=== PATIENT | female | born 1935 | race African-American/Black ===

== ENCOUNTER 2017-03-03 09:30 | Inpatient (IN) | payer MEDICARE, BC ==
[~2017-03-03] VITALS: Ht 167.6 cm; Wt 93.0 kg
[~2017-03-03 09:30] MED LIST: ACUL5 RIGHTEYE; ALLO100T PO; CARV6.2548 PO; CLONIDINE TD; CLOP75TA33 PO; DILT360T11 PO; FAMO20TA8 PO; FERR-63 PO; FLOV44 IH; FOLI-43 PO; FURO20TA4 PO; GABA-529 PO; GLIM4TAB2 PO; HYDR100T26 PO; LEVO100T9 PO; METO2.5T14 PO; PANT40TA4 PO; PRO AIR INH; THIA100T8 PO; VITAMIN C PO
[2017-03-03] MEDS ORDERED: SODIUM CHLORIDE 0.9% 250 ML IV ONE (09:46)
[2017-03-03] MEDS ORDERED: ACETAMINOPHEN 325MG TABLET PO STA (10:17)
[2017-03-03 10:23] LABS: HEMATOCRIT. 35.9 % (36.0-48.0); HEMOGLOBIN. 11.8 g/dL (12.0-16.0); MEAN CORPUSCULAR HEMOGLOBIN 28.8 pg (28.0-32.0); MEAN CORPUSCULAR VOLUME 87.7 fL (81.0-99.0); MEAN PLATELET VOLUME 9.5 fl (7.4-10.4); PLATELET 250 x1000/uL (130-400); RED BLOOD CELL COUNT 4.09 mill/uL (4.2-5.4); RED CELL DISTRIBUTION WIDTH 16.5 % (11.6-14.6)
[2017-03-03 10:28] LABS: PROTHROMBIN TIME 10.7 sec
[2017-03-03] MEDS ORDERED: VANCOMYCIN 1 G PREMIX 200 ML IV ONE (10:30)
[2017-03-03] MEDS ORDERED: PIPERACILLIN/TAZ 3.375G PREMIX 50 ML IV ONE (10:30)
[2017-03-03 10:36] LABS: CARBON DIOXIDE 32 mEq/L (21-32); CHLORIDE 96 mEq/L (98-107); TROPONIN I < 0.02 ng/mL (0.00-0.04)
[2017-03-03 11:32] LABS: CLARITY URINE CLEAR (CLEAR); COLOR URINE YELLOW (YELLOW); GLUCOSE URINE TRACE (NEGATIVE); KETONES URINE NEGATIVE (NEGATIVE); LEUKOCYTE ESTERASE URINE NEGATIVE (NEGATIVE); NITRITE URINE NEGATIVE (NEGATIVE); OCCULT BLOOD URINE NEGATIVE (NEGATIVE); PROTEIN URINE 3+ (NEGATIVE); SPECIFIC GRAVITY URINE 1.015 (1.005-1.030)
[2017-03-03 13:23] LABS: PLATELET ESTIMATE NORMAL
[2017-03-03] MEDS ORDERED: GUAIFENESIN 200MG/10ML SUGAR FREE UDC PO PRN (17:15)
[2017-03-03] MEDS ORDERED: MAGNESIUM/ALUMINUM HYDROXIDE/SIMETHICONE 30ML UDC PO PRN (17:15)
[2017-03-03] MEDS ORDERED: ACETAMINOPHEN 650MG/20.3ML UDC GT PRN (17:15)
[2017-03-03] MEDS ORDERED: ACETAMINOPHEN 325MG TABLET PO PRN (17:15)
[2017-03-03] MEDS ORDERED: DIPHENHYDRAMINE 50MG/ML VIAL IV PRN (17:15)
[2017-03-03] MEDS ORDERED: IPRATROPIUM/ALBUTEROL 0.5-3(2.5)MG/3ML NEB INH PRN (17:15)
[2017-03-03] MEDS ORDERED: ONDANSETRON HCL 4MG/2ML VIAL IV PRN (17:15)
[2017-03-03] MEDS ORDERED: CLONIDINE 0.1MG TABLET PO PRN (17:15)
[2017-03-03] MEDS ORDERED: DOCUSATE SODIUM 100MG CAPSULE PO PRN (17:15)
[2017-03-03] MEDS ORDERED: ACETAMINOPHEN 650MG SUPP PR PRN (17:15)
[2017-03-03] MEDS ORDERED: HYDROCODONE/ACETAMINOPHEN 5/325MG TABLET PO PRN (17:15)
[2017-03-03] MEDS ORDERED: NA PHOS,M-B/NA PHOS,DI-BA ENEMA 118ML PR PRN (17:15)
[2017-03-03] MEDS ORDERED: DEXTROSE 50% WATER 50ML SYRINGE IV PRN (17:30)
[2017-03-03 17:47] VITALS: BP 136/60
[2017-03-03] MEDS ORDERED: ROSU5TAB PO (17:54)
[2017-03-03] MEDS ORDERED: AMLO2.5T45 PO (17:54)
[2017-03-03 18:11] VITALS: BP 136/60
[2017-03-03 18:59] LABS: *AMPHETAMINES SCREEN URINE NEGATIVE (NEGATIVE); *BARBITURATES SCREEN URINE NEGATIVE (NEGATIVE); *BENZODIAZEPINES SCREEN URINE NEGATIVE (NEGATIVE); *COCAINE SCREEN URINE NEGATIVE (NEGATIVE); CANNABINOID URINE SCREEN NEGATIVE (NEGATIVE); METHADONE URINE SCREEN NEGATIVE (NEGATIVE); OPIATES URINE SCREEN NEGATIVE (NEGATIVE); PHENCYCLIDINE URINE SCREEN NEGATIVE (NEGATIVE)
[2017-03-03 20:00] VITALS: BP 167/94
[2017-03-03] MEDS ORDERED: ENOXAPARIN 40MG/0.4ML SYR SUBCUT SCH (20:00)
[2017-03-03] MEDS ORDERED: LEVOFLOXACIN 500MG PREMIX 100 ML IV NR (21:00)
[2017-03-03] MEDS: ENOXAPARIN 40MG/0.4ML SYR SUBCUT SCH (21:45)
[2017-03-03] MEDS: BLOOD SUGAR DIAGNOSTIC STRIP TEST SCH (21:45)
[2017-03-03] MEDS: INSULIN LISPRO 100 UNITS/ML SUBCUT SCH (22:07)
[2017-03-03] MEDS: SODIUM CHLORIDE 0.9% INJ 3ML FLUSH IVF SCH (22:07)
[2017-03-04] VITALS: BP 160/72
[2017-03-04 04:00] VITALS: BP 132/65
[2017-03-04] MEDS: BLOOD SUGAR DIAGNOSTIC STRIP TEST SCH ×4 (05:39→21:00)
[2017-03-04] MEDS: SODIUM CHLORIDE 0.9% INJ 3ML FLUSH IVF SCH ×3 (05:40→22:05)
[2017-03-04] MEDS: INSULIN LISPRO 100 UNITS/ML SUBCUT SCH ×4 (07:18→22:11)
[2017-03-04 07:22] LABS: BASOPHILS % 0.4 % (0.0-2.0); EOSINOPHILS % 0.9 % (0.0-5.0); HEMATOCRIT. 33.2 % (36.0-48.0); HEMOGLOBIN. 10.8 g/dL (12.0-16.0); LYMPHOCYTES % 18.4 % (20.0-50.0); MEAN CORPUSCULAR HEMOGLOBIN 28.7 pg (28.0-32.0); MEAN CORPUSCULAR VOLUME 88.6 fL (81.0-99.0); MONOCYTES % 12.1 % (2.0-8.0); NEUTROPHILS % 68.2 % (40.0-76.0); PLATELET 232 x1000/uL (130-400); RED BLOOD CELL COUNT 3.75 mill/uL (4.2-5.4); RED CELL DISTRIBUTION WIDTH 16.3 % (11.6-14.6)
[2017-03-04 08:00] VITALS: BP 144/77
[2017-03-04 08:23] LABS: CHLORIDE 99 mEq/L (98-107)
[2017-03-04 08:47] LABS: CARBON DIOXIDE 27 mEq/L (21-32); HDL CHOLESTEROL 43 mg/dL (40-59); LDL CHOLESTEROL 30 mg/dL (5-100)
[2017-03-04] MEDS ORDERED: POTASSIUM CHLORIDE 20MEQ TABLET SR PO NR (09:30)
[2017-03-04 12:00] VITALS: BP 106/56
[2017-03-04] MEDS ORDERED: HEPARIN SODIUM 1,000 UNIT/1ML VIAL IV NR (12:30)
[2017-03-04] MEDS: CARVEDILOL 6.25 MG TABLET PO SCH ×2 (13:00→22:04)
[2017-03-04] MEDS: AMLODIPINE 5MG TABLET PO SCH (13:00)
[2017-03-04] MEDS: FOLIC ACID 1MG TABLET PO SCH (13:51)
[2017-03-04] MEDS: CLOPIDOGREL 75MG TABLET PO SCH (13:51)
[2017-03-04] MEDS: FAMOTIDINE 20MG TABLET PO SCH (13:52)
[2017-03-04] MEDS: ALLOPURINOL 100 MG TABLET PO SCH (13:52)
[2017-03-04] MEDS: PANTOPRAZOLE 40MG DR TABLET PO SCH (13:52)
[2017-03-04] MEDS: HYDRALAZINE HCL 100MG TABLET PO SCH ×2 (15:02→22:04)
[2017-03-04] MEDS: FUROSEMIDE 20MG TABLET PO SCH (15:03)
[2017-03-04] MEDS: METOLAZONE 2.5MG TABLET PO SCH (15:03)
[2017-03-04 16:00] VITALS: BP 117/71
[2017-03-04 20:00] VITALS: BP 126/67
[2017-03-04] MEDS ORDERED: GABAPENTIN 100MG CAPSULE PO SCH (21:00)
[2017-03-04] MEDS: METRONIDAZOLE 500MG TABLET PO SCH (22:04)
[2017-03-04] MEDS: ENOXAPARIN 40MG/0.4ML SYR SUBCUT SCH (22:05)
[2017-03-05] VITALS: BP 144/75
[2017-03-05 04:00] VITALS: BP 152/80
[2017-03-05] MEDS: BLOOD SUGAR DIAGNOSTIC STRIP TEST SCH (05:25)
[2017-03-05] MEDS: METRONIDAZOLE 500MG TABLET PO SCH (05:29)
[2017-03-05] MEDS: HYDRALAZINE HCL 100MG TABLET PO SCH (05:29)
[2017-03-05] MEDS: SODIUM CHLORIDE 0.9% INJ 3ML FLUSH IVF SCH ×2 (05:29→07:38)
[2017-03-05] MEDS: INSULIN LISPRO 100 UNITS/ML SUBCUT SCH (07:34)
[2017-03-05] MEDS ORDERED: LEVOTHYROXINE SODIUM 100MCG TABLET PO SCH (07:40)
[2017-03-05 08:00] VITALS: BP 155/100
[2017-03-05] MEDS: FUROSEMIDE 20MG TABLET PO SCH (08:45)
[2017-03-05] MEDS: FAMOTIDINE 20MG TABLET PO SCH (08:45)
[2017-03-05] MEDS: METOLAZONE 2.5MG TABLET PO SCH (08:47)
[2017-03-05] MEDS: PANTOPRAZOLE 40MG DR TABLET PO SCH (08:47)
[2017-03-05] MEDS: ALLOPURINOL 100 MG TABLET PO SCH (08:47)
[2017-03-05] MEDS: CLOPIDOGREL 75MG TABLET PO SCH (08:47)
[2017-03-05] MEDS: FOLIC ACID 1MG TABLET PO SCH (08:49)
[2017-03-05] MEDS: CARVEDILOL 6.25 MG TABLET PO SCH (08:52)
[2017-03-05] MEDS: AMLODIPINE 5MG TABLET PO SCH (08:53)
[2017-03-05] MEDS ORDERED: GLIMEPIRIDE 4MG TABLET PO SCH (09:00)
[2017-03-05 12:00] VITALS: BP 126/87
[2017-03-05 12:05] VITALS: BP 126/87
[2017-03-05] MEDS ORDERED: LEVOFLOXACIN 250MG PREMIX 50 ML IV SCH (18:00)
== END 2017-03-05 13:00 | disposition home or self-care (01) | DRG 70 ==
LOC: ER 09:44 → ENRESERV 15:21 → 7WST 17:30
PROVIDERS: ADMIT Family Medicine; ATTEND Family Medicine
PROC: 5A1D00Z (ICD-10-PCS; principal; 2017-03-04)
DX: G93.41 Metabolic encephalopathy (principal); N18.6 End stage renal disease; I13.2 Hypertensive heart and chronic kidney disease with heart failure and with stage 5 chronic kidney disease, or end stage renal disease; E44.1 Mild protein-calorie malnutrition; A04.7 Enterocolitis due to Clostridium difficile; I69.959 Hemiplegia and hemiparesis following unspecified cerebrovascular disease affecting unspecified side; G62.9 Polyneuropathy, unspecified; E03.9 Hypothyroidism, unspecified; E11.40 Type 2 diabetes mellitus with diabetic neuropathy, unspecified; D64.9 Anemia, unspecified; E11.22 Type 2 diabetes mellitus with diabetic chronic kidney disease; I50.9 Heart failure, unspecified; M10.9 Gout, unspecified; Z99.2 Dependence on renal dialysis; Z87.891 Personal history of nicotine dependence; Z90.49 Acquired absence of other specified parts of digestive tract; Z98.49 Cataract extraction status, unspecified eye; Z88.6 Allergy status to analgesic agent; Z88.0 Allergy status to penicillin; Z93.1 Gastrostomy status; Z68.33 Body mass index [BMI] 33.0-33.9, adult; Z86.73 Personal history of transient ischemic attack (TIA), and cerebral infarction without residual deficits; Z90.710 Acquired absence of both cervix and uterus
CPT/HCPCS: 36415; 70450; 71010; 80053; 80061; 80305; 81001; 82962; 83605; 84484; 85025; 85610; 87015; 87040; 87045; 87086; 87427; 87449; 87493; 93005; 99285; J1644; J1650; J1815; J1956; J2543; J3370; J7030; J7050

== ENCOUNTER 2017-09-29 01:27 | Inpatient (IN) | payer MEDICARE, BC ==
[~2017-09-29] VITALS: Ht 167.6 cm; Wt 91.6 kg
[~2017-09-29 01:27] MED LIST changes: -ACUL5 RIGHTEYE; +AMLO2.5T45 PO; -DILT360T11 PO; -FERR-63 PO; +ROSU5TAB PO; -THIA100T8 PO; +THIA100T88 PO
[2017-09-29] MEDS ORDERED: NEPVIT PO (01:46)
[2017-09-29] MEDS ORDERED: ASCO125T PO (01:47)
[2017-09-29] MEDS ORDERED: LEVVL SQ (01:48)
[2017-09-29] MEDS ORDERED: SODIUM CHLORIDE 0.9% 1,000 ML IV ONE (01:58)
[2017-09-29] MEDS ORDERED: ACETAMINOPHEN 325MG TABLET PO ONE (02:15)
[2017-09-29] MEDS ORDERED: VANCOMYCIN 1 G PREMIX 200 ML IV ONE (02:30)
[2017-09-29] MEDS ORDERED: LEVOFLOXACIN 750MG PREMIX 150 ML IV ONE (02:30)
[2017-09-29 03:21] LABS: CLARITY URINE CLEAR (CLEAR); COLOR URINE YELLOW (YELLOW); KETONES URINE NEGATIVE (NEGATIVE); LEUKOCYTE ESTERASE URINE NEGATIVE (NEGATIVE); NITRITE URINE NEGATIVE (NEGATIVE); OCCULT BLOOD URINE NEGATIVE (NEGATIVE); PROTEIN URINE 3+ (NEGATIVE); SPECIFIC GRAVITY URINE 1.015 (1.005-1.030); UROBILINOGEN URINE 0.2 E.U./dL (0.2-1.0)
[2017-09-29 03:24] LABS: HEMATOCRIT. 33.5 % (36.0-48.0); MEAN CORPUSCULAR HEMOGLOBIN 30.9 pg (28.0-32.0); MEAN CORPUSCULAR VOLUME 94.1 fL (81.0-99.0); MEAN PLATELET VOLUME 9.8 fl (7.4-10.4); PLATELET 206 x1000/uL (130-400); RED BLOOD CELL COUNT 3.56 mill/uL (4.2-5.4); RED CELL DISTRIBUTION WIDTH 15.3 % (11.6-14.6)
[2017-09-29 03:26] LABS: INR 1.1; PROTHROMBIN TIME 11.3 sec (9.4-11.6)
[2017-09-29] MEDS ORDERED: OSELTAMIVIR 75MG CAPSULE PO ONE (03:30)
[2017-09-29 04:01] LABS: CHLORIDE 97 mEq/L (98-107)
[2017-09-29 04:29] LABS: PLATELET ESTIMATE NORMAL
[2017-09-29] MEDS ORDERED: IPRATROPIUM/ALBUTEROL 0.5-3(2.5)MG/3ML NEB INH PRN (07:00)
[2017-09-29] MEDS ORDERED: CLONIDINE 0.1MG TABLET PO PRN (07:00)
[2017-09-29] MEDS ORDERED: DOCUSATE SODIUM 100MG CAPSULE PO PRN (07:00)
[2017-09-29] MEDS ORDERED: LORAZEPAM 2MG/ML CPJ IV PRN (07:00)
[2017-09-29] MEDS ORDERED: ONDANSETRON HCL 4MG/2ML INJ IV PRN ×2 (07:00→07:45)
[2017-09-29] MEDS ORDERED: ACETAMINOPHEN 325MG TABLET PO PRN (07:00)
[2017-09-29] MEDS ORDERED: GUAIFENESIN 200MG/10ML SUGAR FREE UDC PO PRN (07:00)
[2017-09-29] MEDS ORDERED: LEVOFLOXACIN 500MG PREMIX 100 ML IV SCH (07:00)
[2017-09-29] MEDS ORDERED: DIPHENHYDRAMINE 50MG/ML VIAL IV PRN (07:00)
[2017-09-29] MEDS ORDERED: MAGNESIUM/ALUMINUM HYDROXIDE/SIMETHICONE 30ML UDC PO PRN (07:00)
[2017-09-29] MEDS ORDERED: HYDROMORPHONE HCL/PF 2MG/ML CPJ IV PRN (07:00)
[2017-09-29] MEDS ORDERED: NA PHOS,M-B/NA PHOS,DI-BA ENEMA 118ML PR PRN (07:00)
[2017-09-29 08:55] VITALS: BP 112/44
[2017-09-29 09:00] VITALS: BP 112/44
[2017-09-29] MEDS ORDERED: CLON0.1T PO (09:23)
[2017-09-29] MEDS ORDERED: SEVE800T8 PO (09:24)
[2017-09-29] MEDS ORDERED: CLONIDINE 0.1 MG TD PRN (11:15)
[2017-09-29] MEDS ORDERED: CLONIDINE 0.1MG TABLET PO SCH (11:15)
[2017-09-29 12:00] VITALS: BP 107/52
[2017-09-29] MEDS: ENOXAPARIN 30MG/0.3ML SYR SUBCUT SCH (12:03)
[2017-09-29] MEDS: AMLODIPINE 5MG TABLET PO SCH (12:21)
[2017-09-29] MEDS: ASPIRIN 81MG EC TABLET PO SCH (12:22)
[2017-09-29] MEDS: BLOOD SUGAR DIAGNOSTIC STRIP TEST SCH ×3 (12:40→20:40)
[2017-09-29] MEDS: HYDRALAZINE HCL 100MG TABLET PO SCH ×2 (12:51→17:00)
[2017-09-29] MEDS: INSULIN LISPRO 100 UNITS/ML SUBCUT SCH ×3 (12:56→20:40)
[2017-09-29] MEDS: SEVELAMER CARBONATE 800 MG TABLET PO SCH ×3 (14:04→20:30)
[2017-09-29 16:00] VITALS: BP 113/57
[2017-09-29 16:19] LABS: CREATINE KINASE 140 IU/L (26-192); CREATINE KINASE MB FRACTION 1.5 ng/mL (0.5-3.6)
[2017-09-29] MEDS: CARVEDILOL 6.25 MG TABLET PO SCH (17:00)
[2017-09-29] MEDS ORDERED: FLUTICASONE PROPIONATE IH SCH (17:00)
[2017-09-29] MEDS ORDERED: FAMOTIDINE(NEO) 1MG/ML SUSP PO SCH (17:00)
[2017-09-29] MEDS: BUDESONIDE 0.5MG/2ML NEB HHN SCH (19:43)
[2017-09-29 20:00] VITALS: BP 118/67
[2017-09-29] MEDS: ATORVASTATIN CALCIUM 10MG TABLET PO SCH (20:30)
[2017-09-29] MEDS: GABAPENTIN 100MG CAPSULE PO SCH (20:30)
[2017-09-30] VITALS: BP 117/70
[2017-09-30 00:06] LABS: CREATINE KINASE 118 IU/L (26-192); CREATINE KINASE MB FRACTION 1.2 ng/mL (0.5-3.6)
[2017-09-30 04:00] VITALS: BP 137/57
[2017-09-30 06:28] LABS: HEMATOCRIT. 35.1 % (36.0-48.0); HEMOGLOBIN. 11.5 g/dL (12.0-16.0); MEAN CORPUSCULAR HEMOGLOBIN 30.9 pg (28.0-32.0); MEAN CORPUSCULAR VOLUME 94.3 fL (81.0-99.0); MEAN PLATELET VOLUME 10.1 fl (7.4-10.4); PLATELET 193 x1000/uL (130-400); RED BLOOD CELL COUNT 3.72 mill/uL (4.2-5.4); RED CELL DISTRIBUTION WIDTH 15.4 % (11.6-14.6)
[2017-09-30] MEDS: BLOOD SUGAR DIAGNOSTIC STRIP TEST SCH ×4 (07:40→20:40)
[2017-09-30] MEDS: INSULIN LISPRO 100 UNITS/ML SUBCUT SCH ×4 (07:55→20:41)
[2017-09-30 08:00] VITALS: BP 123/60
[2017-09-30] MEDS: BUDESONIDE 0.5MG/2ML NEB HHN SCH ×2 (08:13→21:57)
[2017-09-30 08:19] LABS: CHLORIDE 98 mEq/L (98-107); CREATINE KINASE 106 IU/L (26-192); HDL CHOLESTEROL 44 mg/dL (40-59); LDL CHOLESTEROL 36 mg/dL (5-100)
[2017-09-30] MEDS: LEVOTHYROXINE SODIUM 100MCG TABLET PO SCH (08:35)
[2017-09-30] MEDS: SEVELAMER CARBONATE 800 MG TABLET PO SCH ×4 (08:35→20:31)
[2017-09-30] MEDS ORDERED: MEDICATION NOT ON FORMULARY EA (Rosuvastatin Calcium (Crestor) 5 MG) PO SCH (09:00)
[2017-09-30] MEDS ORDERED: METOLAZONE 2.5MG TABLET PO SCH (09:00)
[2017-09-30] MEDS ORDERED: THIAMINE HCL 100 MG PO SCH (09:00)
[2017-09-30] MEDS ORDERED: VITAMIN C 250 MG PO SCH (09:00)
[2017-09-30] MEDS ORDERED: FUROSEMIDE 20MG TABLET PO SCH (09:00)
[2017-09-30] MEDS: ASCORBIC ACID 250 MG TABLET PO SCH (09:06)
[2017-09-30] MEDS: GLIMEPIRIDE 4MG TABLET PO SCH (09:06)
[2017-09-30] MEDS: HYDRALAZINE HCL 100MG TABLET PO SCH ×3 (09:06→17:00)
[2017-09-30] MEDS: CLOPIDOGREL 75MG TABLET PO SCH (09:06)
[2017-09-30] MEDS: THIAMINE HCL 100MG TABLET PO SCH (09:06)
[2017-09-30] MEDS: ASPIRIN 81MG EC TABLET PO SCH (09:07)
[2017-09-30] MEDS: FOLIC ACID 1MG TABLET PO SCH (09:07)
[2017-09-30] MEDS: PANTOPRAZOLE 40MG DR TABLET PO SCH (09:07)
[2017-09-30] MEDS: CARVEDILOL 6.25 MG TABLET PO SCH ×2 (09:07→17:00)
[2017-09-30] MEDS: AMLODIPINE 5MG TABLET PO SCH (09:07)
[2017-09-30] MEDS: FAMOTIDINE 20MG TABLET PO SCH (09:07)
[2017-09-30] MEDS: ENOXAPARIN 30MG/0.3ML SYR SUBCUT SCH (09:08)
[2017-09-30] MEDS: ALLOPURINOL 100 MG TABLET PO SCH (09:09)
[2017-09-30 12:00] VITALS: BP 115/49
[2017-09-30] MEDS: IPRATROPIUM/ALBUTEROL 0.5-3(2.5)MG/3ML NEB HHN SCH ×3 (12:28→21:57)
[2017-09-30 13:04] LABS: PLATELET ESTIMATE NORMAL
[2017-09-30 16:00] VITALS: BP 105/50
[2017-09-30 19:58] VITALS: BP 102/50
[2017-09-30] MEDS: GABAPENTIN 100MG CAPSULE PO SCH (20:31)
[2017-09-30] MEDS: ATORVASTATIN CALCIUM 10MG TABLET PO SCH (20:32)
[2017-09-30] MEDS ORDERED: IPRATROPIUM/ALBUTEROL 0.5-3(2.5)MG/3ML NEB HHN PRN (21:00)
[2017-10-01] VITALS: BP 120/55
[2017-10-01] MEDS ORDERED: LEVOFLOXACIN 250MG PREMIX 50 ML IV SCH (03:00)
[2017-10-01 04:00] VITALS: BP 132/63
[2017-10-01] MEDS: DEXTROSE 50% WATER 50ML SYRINGE IV PRN (06:01)
[2017-10-01] MEDS: BLOOD SUGAR DIAGNOSTIC STRIP TEST SCH ×4 (06:34→21:07)
[2017-10-01] MEDS: IPRATROPIUM/ALBUTEROL 0.5-3(2.5)MG/3ML NEB HHN SCH ×4 (07:59→20:32)
[2017-10-01] MEDS: BUDESONIDE 0.5MG/2ML NEB HHN SCH ×2 (07:59→20:30)
[2017-10-01 08:00] VITALS: BP 135/62
[2017-10-01] MEDS: HYDRALAZINE HCL 100MG TABLET PO SCH ×3 (09:00→17:00)
[2017-10-01] MEDS: AMLODIPINE 5MG TABLET PO SCH (09:00)
[2017-10-01] MEDS: CLOPIDOGREL 75MG TABLET PO SCH (09:00)
[2017-10-01] MEDS: CARVEDILOL 6.25 MG TABLET PO SCH ×2 (09:00→17:00)
[2017-10-01] MEDS: PANTOPRAZOLE 40MG DR TABLET PO SCH (09:09)
[2017-10-01] MEDS: ASPIRIN 81MG EC TABLET PO SCH (09:09)
[2017-10-01] MEDS: SEVELAMER CARBONATE 800 MG TABLET PO SCH ×4 (09:09→21:00)
[2017-10-01] MEDS: LEVOTHYROXINE SODIUM 100MCG TABLET PO SCH (09:09)
[2017-10-01] MEDS: THIAMINE HCL 100MG TABLET PO SCH (09:09)
[2017-10-01] MEDS: FOLIC ACID 1MG TABLET PO SCH (09:09)
[2017-10-01] MEDS: ALLOPURINOL 100 MG TABLET PO SCH (09:09)
[2017-10-01] MEDS: FAMOTIDINE 20MG TABLET PO SCH (09:09)
[2017-10-01] MEDS: GLIMEPIRIDE 4MG TABLET PO SCH (09:12)
[2017-10-01] MEDS: ASCORBIC ACID 250 MG TABLET PO SCH (09:12)
[2017-10-01 12:00] VITALS: BP 129/61
[2017-10-01 16:00] VITALS: BP 128/57
[2017-10-01 20:00] VITALS: BP 135/58
[2017-10-01] MEDS: ATORVASTATIN CALCIUM 10MG TABLET PO SCH (20:59)
[2017-10-01] MEDS: GABAPENTIN 100MG CAPSULE PO SCH (20:59)
[2017-10-02] VITALS: BP 131/56
[2017-10-02 04:00] VITALS: BP 121/61
[2017-10-02 08:00] VITALS: BP 119/57
[2017-10-02] MEDS: IPRATROPIUM/ALBUTEROL 0.5-3(2.5)MG/3ML NEB HHN SCH ×4 (08:04→20:33)
[2017-10-02] MEDS: BUDESONIDE 0.5MG/2ML NEB HHN SCH ×2 (08:04→17:00)
[2017-10-02] MEDS: BLOOD SUGAR DIAGNOSTIC STRIP TEST SCH ×4 (08:06→21:42)
[2017-10-02] MEDS: HYDRALAZINE HCL 100MG TABLET PO SCH ×3 (09:00→17:37)
[2017-10-02] MEDS: ASPIRIN 81MG EC TABLET PO SCH ×2 (09:00→09:12)
[2017-10-02] MEDS: SEVELAMER CARBONATE 800 MG TABLET PO SCH ×4 (09:11→20:41)
[2017-10-02] MEDS: LEVOTHYROXINE SODIUM 100MCG TABLET PO SCH (09:12)
[2017-10-02] MEDS: CARVEDILOL 6.25 MG TABLET PO SCH ×2 (09:12→17:37)
[2017-10-02] MEDS: FOLIC ACID 1MG TABLET PO SCH (09:12)
[2017-10-02] MEDS: FAMOTIDINE 20MG TABLET PO SCH (09:13)
[2017-10-02] MEDS: AMLODIPINE 5MG TABLET PO SCH (09:13)
[2017-10-02] MEDS: CLOPIDOGREL 75MG TABLET PO SCH (09:13)
[2017-10-02] MEDS: ALLOPURINOL 100 MG TABLET PO SCH (09:14)
[2017-10-02] MEDS: ENOXAPARIN 40MG/0.4ML SYR SUBCUT SCH (09:14)
[2017-10-02] MEDS: THIAMINE HCL 100MG TABLET PO SCH (09:14)
[2017-10-02] MEDS: PANTOPRAZOLE 40MG DR TABLET PO SCH (09:14)
[2017-10-02] MEDS: GLIMEPIRIDE 4MG TABLET PO SCH (09:24)
[2017-10-02] MEDS: ASCORBIC ACID 250 MG TABLET PO SCH (09:24)
[2017-10-02 12:00] VITALS: BP 131/61
[2017-10-02 16:00] VITALS: BP 100/47
[2017-10-02 20:00] VITALS: BP 120/51
[2017-10-02] MEDS: ATORVASTATIN CALCIUM 10MG TABLET PO SCH (20:41)
[2017-10-02] MEDS: GABAPENTIN 100MG CAPSULE PO SCH (20:41)
[2017-10-02] MEDS ORDERED: LEVOFLOXACIN 250MG TABLET PO SCH (21:00)
[2017-10-02] MEDS: INSULIN LISPRO 100 UNITS/ML SUBCUT SCH (22:58)
[2017-10-03] VITALS: BP 121/56
[2017-10-03 04:00] VITALS: BP 131/53
[2017-10-03] MEDS: BLOOD SUGAR DIAGNOSTIC STRIP TEST SCH ×2 (05:57→12:40)
[2017-10-03] MEDS: DEXTROSE 50% WATER 50ML SYRINGE IV PRN (05:57)
[2017-10-03] MEDS: IPRATROPIUM/ALBUTEROL 0.5-3(2.5)MG/3ML NEB HHN SCH (07:33)
[2017-10-03 08:00] VITALS: BP 112/60
[2017-10-03] MEDS: OSELTAMIVIR 30MG CAPSULE PO SCH ×2 (09:00→09:16)
[2017-10-03] MEDS: FAMOTIDINE 20MG TABLET PO SCH (09:08)
[2017-10-03] MEDS: THIAMINE HCL 100MG TABLET PO SCH (09:09)
[2017-10-03] MEDS: CLOPIDOGREL 75MG TABLET PO SCH (09:09)
[2017-10-03] MEDS: CARVEDILOL 6.25 MG TABLET PO SCH ×2 (09:09→17:00)
[2017-10-03] MEDS: FOLIC ACID 1MG TABLET PO SCH (09:09)
[2017-10-03] MEDS: SEVELAMER CARBONATE 800 MG TABLET PO SCH ×2 (09:09→17:16)
[2017-10-03] MEDS: AMLODIPINE 5MG TABLET PO SCH (09:09)
[2017-10-03] MEDS: ALLOPURINOL 100 MG TABLET PO SCH (09:09)
[2017-10-03] MEDS: ASPIRIN 81MG EC TABLET PO SCH (09:10)
[2017-10-03] MEDS: LEVOTHYROXINE SODIUM 100MCG TABLET PO SCH (09:10)
[2017-10-03] MEDS: ENOXAPARIN 40MG/0.4ML SYR SUBCUT SCH (09:11)
[2017-10-03] MEDS: ASCORBIC ACID 250 MG TABLET PO SCH (09:15)
[2017-10-03] MEDS: HYDRALAZINE HCL 100MG TABLET PO SCH ×3 (09:16→17:00)
[2017-10-03] MEDS: GLIMEPIRIDE 4MG TABLET PO SCH (09:16)
[2017-10-03 12:00] VITALS: BP 126/60
[2017-10-03] MEDS: INSULIN LISPRO 100 UNITS/ML SUBCUT SCH (13:10)
== END 2017-10-03 17:30 | disposition home or self-care (01) | DRG 871 ==
LOC: ER 01:27 → EDBEDREQ 03:09 → EDBEDREQTM 04:20 → ENRESERV 07:11 → 7WST 07:11
PROVIDERS: ADMIT Internal Medicine; ATTEND Internal Medicine
PROC: 5A1D70Z Performance of Urinary Filtration, Intermittent, Less than 6 Hours Per Day (ICD-10-PCS; principal; 2017-10-01)
DX: A41.9 Sepsis, unspecified organism (principal); J96.00 Acute respiratory failure, unspecified whether with hypoxia or hypercapnia; G93.41 Metabolic encephalopathy; I13.2 Hypertensive heart and chronic kidney disease with heart failure and with stage 5 chronic kidney disease, or end stage renal disease; E46 Unspecified protein-calorie malnutrition; N18.6 End stage renal disease; J20.8 Acute bronchitis due to other specified organisms; E11.22 Type 2 diabetes mellitus with diabetic chronic kidney disease; I50.9 Heart failure, unspecified; D63.8 Anemia in other chronic diseases classified elsewhere; E11.649 Type 2 diabetes mellitus with hypoglycemia without coma; E78.00 Pure hypercholesterolemia, unspecified; E78.5 Hyperlipidemia, unspecified; I25.10 Atherosclerotic heart disease of native coronary artery without angina pectoris; J10.1 Influenza due to other identified influenza virus with other respiratory manifestations; Z79.51 Long term (current) use of inhaled steroids; Z79.84 Long term (current) use of oral hypoglycemic drugs; Z79.899 Other long term (current) drug therapy; Z86.73 Personal history of transient ischemic attack (TIA), and cerebral infarction without residual deficits; Z99.2 Dependence on renal dialysis; Z88.0 Allergy status to penicillin; Z88.5 Allergy status to narcotic agent; Z79.4 Long term (current) use of insulin; Z68.32 Body mass index [BMI] 32.0-32.9, adult
CPT/HCPCS: 36415; 71045; 80048; 80061; 81001; 82550; 82553; 82962; 83036; 83605; 83880; 84439; 84443; 84484; 85379; 87804; 93005; 93306; 94640; 96361; 96365; 96375; 97116; 97162; 97530; 99285; J1650; J1815; J1956; J3370; J7030; J7040; J7620; J7626; A4315

== ENCOUNTER 2018-10-31 09:43 | Emergency (ER) | payer MEDICARE, BC ==
[~2018-10-31] VITALS: Ht 167.6 cm; Wt 104.0 kg
[~2018-10-31 09:43] MED LIST changes: +ASCO125T PO; +CLON0.1T PO; +LEVVL SQ; +NEPVIT PO; +SEVE800T8 PO
[2018-10-31 11:00] LABS: BASOPHILS % 0.7 % (0.0-2.0); EOSINOPHILS % 0.6 % (0.0-5.0); HEMATOCRIT. 31.3 % (36.0-48.0); HEMOGLOBIN. 10.4 g/dL (12.0-16.0); LYMPHOCYTES % 17.3 % (20.0-50.0); MEAN CORPUSCULAR HEMOGLOBIN 32.5 pg (28.0-32.0); MEAN PLATELET VOLUME 8.9 fl (7.4-10.4); MONOCYTES % 10.8 % (2.0-8.0); NEUTROPHILS % 70.6 % (40.0-76.0); PLATELET 188 x1000/uL (130-400); RED CELL DISTRIBUTION WIDTH 14.8 % (11.6-14.6)
[2018-10-31 11:07] LABS: CHLORIDE 102 mEq/L (98-107)
[2018-10-31 11:10] LABS: INR 1.1; PARTIAL THROMBOPLASTIN TIME 29.2 sec (23.4-31.0); PROTHROMBIN TIME 11.1 sec (9.1-11.1)
[2018-10-31] MEDS ORDERED: ASPIRIN 81MG TABLET PO ONE (12:00)
[2018-10-31 13:11] VITALS: BP 113/54
== END 2018-10-31 14:09 | disposition left against medical advice (07) ==
LOC: ER 09:52 → CANBEDREQ 12:49 → ER 14:09
DX: E11.649 Type 2 diabetes mellitus with hypoglycemia without coma (principal); I12.0 Hypertensive chronic kidney disease with stage 5 chronic kidney disease or end stage renal disease; E11.22 Type 2 diabetes mellitus with diabetic chronic kidney disease; N18.6 End stage renal disease; E03.9 Hypothyroidism, unspecified; J44.9 Chronic obstructive pulmonary disease, unspecified; Z79.4 Long term (current) use of insulin; Z88.0 Allergy status to penicillin; Z88.5 Allergy status to narcotic agent; Z99.2 Dependence on renal dialysis
CPT/HCPCS: 36415; 71045; 82962; 84484; 93005; 99284